=== PATIENT | male | born 1975 | race Caucasian/White ===

== ENCOUNTER 2021-09-30 14:03 | Emergency (ER) | payer SELFPAY ==
[2021-09-30 15:07] VITALS: BP 147/99; PULSE 70; TEMP 98.2; BMI 24.5
[2021-09-30] MEDS ORDERED: predniSONE 20 MG TABLET (UD) PO ONE (16:13)
[2021-09-30] MEDS ORDERED: predniSONE 10 MG TABLET (UD) ONE (16:56)
[2021-09-30] MEDS ORDERED: predniSONE 20 MG TABLET (UD) ONE (16:56)
== END 2021-09-30 17:17 | disposition home or self-care (01) ==
LOC: JERFT 14:03
PROC: 3E023GC Introduction of Other Therapeutic Substance into Muscle, Percutaneous Approach (ICD-10-PCS; principal; 2021-09-30)
DX: R21 Rash and other nonspecific skin eruption (principal)
CPT/HCPCS: 99284-25